=== PATIENT | female | born 1980 | race Caucasian/White ===

== ENCOUNTER 2019-03-18 08:13 | Emergency (ER) | payer OTHER ==
[~2019-03-18] VITALS: Ht 175.3 cm; Wt 104.3 kg
[~2019-03-18 08:13] MED LIST: ALBU90OI61 INH; Amoxicillin500 MG PO; BUDE.25; NAPR500 PO; PRENATAL FORMU1 EAC2 PO; Percocet 5-3251 EACH PO; SERT50 PO
[2019-03-18] MEDS ORDERED: KETO10 PO (10:38)
[2019-03-18] MEDS ORDERED: DEXT30SU PO (10:38)
[2019-03-18] MEDS ORDERED: Prednisone20 MG PO (10:38)
== END 2019-03-18 11:38 | disposition home or self-care (01) ==
LOC: ER 08:13
DX: J18.9 Pneumonia, unspecified organism (principal); J45.909 Unspecified asthma, uncomplicated; F17.200 Nicotine dependence, unspecified, uncomplicated; Z88.5 Allergy status to narcotic agent; Z91.011 Allergy to milk products; Z79.899 Other long term (current) drug therapy
CPT/HCPCS: 71046; 93005; 93010; 96365; 96375; 99284-25; J0456; J1885; J2930; J7050; J7120

== ENCOUNTER → 2019-03-23 | Outpatient (CLI) | payer OTHER ==
[~2019-03-23] MED LIST changes: +DEXT30SU PO; +KETO10 PO; +Prednisone20 MG PO
[2019-03-23 19:36] LABS: U Amphetamine Screen Not Detected; U Barbituate Screen Not Detected; U Benzodiazapine Screen Not Detected; U Buprenorphine Screen Not Detected; U Cannabinoids Screen Not Detected; U Cocaine Screen Not Detected; U Methadone Screen Not Detected; U Methamphetamine Screen Not Detected; U Opiates Screen Not Detected; U Oxycodone Screen Not Detected; U Phencyclidine Screen Not Detected; U Propoxyphene Screen Not Detected
== END | disposition home or self-care (01) ==
LOC: LAB 17:38 → LAB SHORT 17:38
PROVIDERS: Registered Nurse Psychiatric/Mental Health
DX: Z51.81 Encounter for therapeutic drug level monitoring (principal); Z79.899 Other long term (current) drug therapy